=== PATIENT | female | born 1960 | race Caucasian/White ===

== ENCOUNTER → 2016-03-24 | Outpatient (CLI) | payer MEDICARE, BC ==
[~2016-03-24] MED LIST: CALCIUM200 MG PO; EPA FISH OIL1000 MG PO; HALCION 0.0.125 MG/T PO; LEVAQUIN 2250 MG/TAB PO; MULTIPLE VITAMI1 CAP PO; MVI; NAPROXEN 3375 MG/TAB PO; NEURONTIN300 MG/CAP PO; NO HOME MEDICATIONS; NORCO 325 MG-51 TAB PO; SINGULAIR 110 MG/TAB PO; ULTRAM 50MG TAB50 MG PO; VALIUM 2MG T2 MG/TAB PO; VITAMIN D 400400 IU PO
== END ==
LOC: MC.RAD 07:40
DX: Z12.31 Encounter for screening mammogram for malignant neoplasm of breast (principal)

== ENCOUNTER 2016-12-26 12:30 | Outpatient (RCR) | payer MEDICARE, BC | END 2017-01-30 12:21 | disposition home or self-care (01) | LOC: WSOT | DX: M19.041 Primary osteoarthritis, right hand (principal); Z87.820 Personal history of traumatic brain injury | CPT/HCPCS: G8987-GO; G8988-GO ==

== ENCOUNTER → 2017-03-06 | Outpatient (CLI) | payer MEDICARE, BC ==
[~2017-03-06] VITALS: Ht 162.6 cm; Wt 80.0 kg
[~2017-03-06] MED LIST changes: +FOSAMAX 70MG TA70 MG PO; +MAGNESIUM250 M1 PO; +NATURAL IRON65 MG PO; +VITAMIN B11000 MCG/M IM
[2017-03-06 13:14] VITALS: BP 152/82; PULSE 84
[2017-03-06 14:20] VITALS: BP 139/92; PULSE 72
== END ==
LOC: COL.RAD 13:00
DX: M50.323 Other cervical disc degeneration at C6-C7 level (principal)
CPT/HCPCS: J1100

== ENCOUNTER → 2017-08-04 | Outpatient (CLI) | payer MEDICARE, BC ==
[~2017-08-04] VITALS: Ht 162.6 cm; Wt 82.0 kg
[2017-08-04 14:34] VITALS: BP 124/62; PULSE 79; TEMP 98.2
== END ==
LOC: EUO 14:07
DX: M81.8 Other osteoporosis without current pathological fracture (principal)
CPT/HCPCS: J3489

== ENCOUNTER 2017-08-05 09:34 | Inpatient (IN) | payer MEDICARE, BC ==
[~2017-08-05] VITALS: Ht 162.6 cm; Wt 83.5 kg
[2017-09-01] VITALS (12 sets, daily range): BP systolic 89–119; BP diastolic 44–75; PULSE 79–101; TEMP 97.9–98.5
[2017-09-01] MEDS ORDERED: FOLIC ACID800 MCG PO (07:26)
[2017-09-01] MEDS ORDERED: VITAMIN C500 MG PO (07:27)
[2017-09-02] VITALS (7 sets, daily range): BP systolic 92–140; BP diastolic 51–59; PULSE 70–100; TEMP 98.1–99.5
[2017-09-02 06:33] LABS: HEMOGLOBIN 11.4 g/dl (12.5-16.0)
[2017-09-02 06:37] LABS: HEMATOCRIT 35.6 % (37.0-47.0)
[2017-09-03 04:34] VITALS: BP 133/64; PULSE 96; TEMP 98.4
[2017-09-03] MEDS ORDERED: NORCO 325 MG-7.1 TAB PO (06:41)
[2017-09-03] MEDS ORDERED: ASPI325T6 PO (06:41)
[2017-09-03] MEDS ORDERED: ROXICODONE 55 MG/TAB PO (06:42)
[2017-09-03 08:13] VITALS: BP 152/74; PULSE 86; TEMP 98.6
[2017-09-03 11:44] VITALS: BP 123/56; PULSE 81; TEMP 98.1
== END 2017-09-03 17:35 | disposition home or self-care (01) | DRG 470 ==
LOC: JCC 09-01 06:23
PROVIDERS: Orthopaedic Surgery
PROC: 0SRC0J9 Replacement of Right Knee Joint with Synthetic Substitute, Cemented, Open Approach (ICD-10-PCS; principal; 2017-09-01 09:30)
DX: M17.11 Unilateral primary osteoarthritis, right knee (principal); M79.7 Fibromyalgia; Z87.891 Personal history of nicotine dependence; Z98.84 Bariatric surgery status
CPT/HCPCS: A4314; A9284; C1713; C1776; J0690; J2250; J2405; J2704; J2765; J3010; J7120

== ENCOUNTER → 2017-08-26 | Outpatient (CLI) | payer MEDICARE, BC ==
[2017-08-26 15:26] LABS: HIV 1/2 Antibodies Non-Reactive; HIV-1p24 Antigen Non-Reactive
== END ==
LOC: COL.LAB 13:43
PROVIDERS: Orthopaedic Surgery
DX: Z01.812 Encounter for preprocedural laboratory examination (principal); M17.11 Unilateral primary osteoarthritis, right knee

== ENCOUNTER 2017-08-28 15:30 | Outpatient (RCR) | payer MEDICARE, BC ==
[2017-09-01] MEDS ORDERED: FOLIC ACID800 MCG PO (07:26)
[2017-09-01] MEDS ORDERED: VITAMIN C500 MG PO (07:27)
== END 2017-09-01 07:56 | disposition home or self-care (01) ==
LOC: WSPT 15:30
DX: Z01.818 Encounter for other preprocedural examination (principal); M17.11 Unilateral primary osteoarthritis, right knee
CPT/HCPCS: G8978-GP; G8979-GP; G8980-GP

== ENCOUNTER 2017-10-05 14:28 | Emergency (ER) | payer MEDICARE, BC ==
[~2017-10-05] VITALS: Ht 162.6 cm; Wt 79.5 kg
[~2017-10-05 14:28] MED LIST changes: +ASPI325T6 PO; +FOLIC ACID800 MCG PO; +NORCO 325 MG-7.1 TAB PO; +ROXICODONE 55 MG/TAB PO; +VITAMIN C500 MG PO
[2017-10-05 14:39] VITALS: TEMP 97.3
[2017-10-05 15:03] LABS: BASO # 0.1 (0.0-0.2); BASO % 0.9 % (0.0-2.0); EOS # 0.2 (0.0-0.7); GRAN # 4.6 (1.4-6.5); GRAN % 58.6 % (42.2-75.2); HEMATOCRIT 44.8 % (37.0-47.0); HEMOGLOBIN 14.3 g/dl (12.5-16.0); LYMPH # 2.4 (1.2-3.4); MEAN CELL VOLUME 93 fl (80.0-100.0); MEAN CORPUSCULAR HEMOGLOBIN 30 pg (27.0-31.0); MEAN CORPUSCULAR HGB CONC 32 g/dl (33.0-37.0); MEAN PLATELET VOLUME 10.5 fl (7.4-10.4); MONO # 0.6 (0.1-0.6); MONO % 7.2 % (1.7-9.3); PLATELET COUNT 299 K/mm3 (130-400); REDCELL DISTRIBUTION WIDTH-CV 13.1 % (11.5-14.5)
[2017-10-05] MEDS ORDERED: NEURONTIN300 MG/CAP PO (15:04)
[2017-10-05] MEDS ORDERED: ULTRAM 50MG TAB50 MG PO (15:04)
[2017-10-05] MEDS ORDERED: OYSTER SHELL C500 MG PO (15:05)
[2017-10-05] MEDS ORDERED: VITAMIN D3400 I1 PO (15:05)
[2017-10-05 15:13] LABS: ALANINE AMINOTRANSFERASE 31 U/L (9-52); ALBUMIN 4.5 gm/dL (3.5-5.0); ALKALINE PHOSPHATASE 86 U/L (50-136); ANION GAP 14 mmol/L (7-16); AST,SGOT 43 U/L (15-37); BILIRUBIN,TOTAL 0.4 mg/dL (0.0-1.0); BLOOD UREA NITROGEN 12 mg/dL (7-17); CALCIUM 9.8 mg/dL (8.4-10.2); CARBON DIOXIDE 25 mmol/L (22-30); CHLORIDE 103 mmol/L (98-107); CREATINE KINASE 43 U/L (30-135); CREATININE, serum 0.63 mg/dL (0.52-1.25); GLUCOSE 94 mg/dL (74-106); POTASSIUM 4.2 mmol/L (3.4-5.0); SODIUM 142 mmol/L (137-145); TOTAL PROTEIN 8.6 gm/dL (6.4-8.2)
[2017-10-05 15:17] LABS: PROTHROMBIN TIME 10.9 SECONDS (9.7-12.8)
[2017-10-05 15:27] LABS: TROPONIN-I < 0.012 ng/mL (0.000-0.034)
[2017-10-05 18:08] VITALS: BP 136/87; PULSE 96
== END 2017-10-05 18:08 | disposition home or self-care (01) ==
LOC: COL.ER 14:28
PROVIDERS: Emergency Medicine
DX: R07.9 Chest pain, unspecified (principal); E11.9 Type 2 diabetes mellitus without complications; Z98.890 Other specified postprocedural states; Z79.82 Long term (current) use of aspirin; Z79.891 Long term (current) use of opiate analgesic
CPT/HCPCS: J7030; Q9967

== ENCOUNTER 2017-12-03 15:00 | Outpatient (RCR) | payer MEDICARE, BC ==
[~2017-12-03 15:00] MED LIST changes: +OYSTER SHELL C500 MG PO; +VITAMIN D3400 I1 PO
== END 2017-12-07 | disposition home or self-care (01) ==
LOC: WSPT
DX: Z47.1 Aftercare following joint replacement surgery (principal); Z96.651 Presence of right artificial knee joint
CPT/HCPCS: G8978-GP; G8979-GP

== ENCOUNTER 2017-12-18 09:35 | Outpatient (RCR) | payer MEDICARE, BC ==
[2018-03-05] MEDS ORDERED: FOSAMAX 70MG TA70 MG PO (11:30)
[2018-03-05] MEDS ORDERED: CYANOCOBAL1000 MCG/M IM (11:31)
[2018-03-05] MEDS ORDERED: MAXALT10 MG PO (11:33)
[2018-03-08] MEDS ORDERED: HALCION 0.0.125 MG/T PO (07:32)
[2018-03-09] MEDS ORDERED: NORCO 325 MG-7.1 TAB PO (13:38)
[2018-03-09] MEDS ORDERED: ASPI325T6 PO (13:38)
[2018-03-09] MEDS ORDERED: ROXICODONE 55 MG/TAB PO (13:39)
[2018-03-09] MEDS ORDERED: TYLENOL 500MG500 MG PO (13:39)
[2018-03-09] MEDS ORDERED: ZANTAC 150MG T150 MG PO (13:40)
== END 2018-03-18 | disposition home or self-care (01) ==
LOC: WSPT
DX: Z47.89 Encounter for other orthopedic aftercare (principal); Z96.651 Presence of right artificial knee joint
CPT/HCPCS: G8979-GP; G8980-GP

== ENCOUNTER 2018-01-12 13:44 | Inpatient (IN) | payer MEDICARE, BC ==
[~2018-01-12] VITALS: Ht 162.6 cm; Wt 80.3 kg
[2018-03-05] MEDS ORDERED: FOSAMAX 70MG TA70 MG PO (11:30)
[2018-03-05] MEDS ORDERED: CYANOCOBAL1000 MCG/M IM (11:31)
[2018-03-05] MEDS ORDERED: MAXALT10 MG PO (11:33)
[2018-03-08] VITALS (11 sets, daily range): BP systolic 102–137; BP diastolic 51–78; PULSE 72–97; TEMP 97.1–98.3
[2018-03-08] MEDS ORDERED: HALCION 0.0.125 MG/T PO (07:32)
--- NOTE | 2018-03-08 11:00 | NUR ---
PATIENT IS BACK IN ROOM 332 POST OP LTK. A&O. VSS. DENIES PAIN. PATIENT IS ABLE TO MOVE BLE. LTK DRESSING IS CD&I WITH AQUACEL AND CRYOCUFF INPLACE. TEDS & SCD'S TO BLE. POSITIVE PEDAL PULSES TO BLE. [place] TO DEPENDENT DRAINAGE WITH SMALL AMOUNTS OF CLEAR YELLOW URINE NOTED. IV FLUIDS INFUSING VIA PUMP. NO C/O N/V. LIQUIDS AT BEDSIDE. HEAD TO TOE ASSESSMENT COMPLET. NO OTHER NEEDS. CALL LIGHT IN REACH.
--- NOTE | 2018-03-08 11:58 | NUR ---
First visit from the dual rate dealer. No needs right now.
--- NOTE | 2018-03-08 13:40 | NUR ---
AT CONTACT LENS LATHE OPERATOR AT BEDSIDE. PATIENT DOING WELL.
--- NOTE | 2018-03-08 19:48 | NUR ---
Assessment completed. Patient is A&O x 4. VSS, currently on 3 liters of supplemental O2 via nasal cannula. Aquacell dressing to left knee is CDI with cryocuff maintained. Pedal pulses intact. BLE osvaldo hose/scds on. Tolerating diet with no c/o nausea. Cruz catheter to DD with yellow clear urine draining. IVF infusing with intermittent antibiotic per orders. Denies any concerns or needs. Bed is in a low position with call light in reach.
--- NOTE | 2018-03-08 20:52 | NUR ---
Patient ambulated approximately 150 feet in the hallway with assist x 1 with walker and gait belt, gait steady.
[2018-03-09 04:11] VITALS: BP 106/53; PULSE 66; TEMP 98
--- NOTE | 2018-03-09 04:43 | NUR ---
Patient has rested intermittently through the night. Pain continues to be controlled with alternating [place]. Aquacell dressing to left knee remains CDI with cryocuff maintained to knee. Cruz catheter to DD with light yellow clear urine draining. IVF to INT after last dose of antibiotic this morning. Denies any concerns or needs at this time, call light within reach.
[2018-03-09 06:43] LABS: HEMOGLOBIN 11.1 g/dl (12.5-16.0)
[2018-03-09 08:12] VITALS: BP 114/51; PULSE 55; TEMP 98.6
--- NOTE | 2018-03-09 08:13 | NUR ---
PATIENT WALKING HALLS WITH MOTHER.
--- NOTE | 2018-03-09 10:43 | NUR ---
Initial visit; Patient thanked Financial Engineer for looking in on her and offering God's blessings though declined spiritual care.
[2018-03-09 12:19] VITALS: BP 126/56; PULSE 62; TEMP 98.1
[2018-03-09] MEDS ORDERED: ASPI325T6 PO (13:38)
[2018-03-09] MEDS ORDERED: NORCO 325 MG-7.1 TAB PO (13:38)
[2018-03-09] MEDS ORDERED: ROXICODONE 55 MG/TAB PO (13:39)
[2018-03-09] MEDS ORDERED: TYLENOL 500MG500 MG PO (13:39)
[2018-03-09] MEDS ORDERED: ZANTAC 150MG T150 MG PO (13:40)
--- NOTE | 2018-03-09 15:45 | NUR ---
SW and SW student met with patient to discuss discharge planning. Patient lives in [place] with her Boris but will be staying with her daughter in Law in [place] after discharge as she does not have any stairs to get into the home. Patient has a walker and will be doing her outpatient PT at [facility]. There are no anticipated discharge needs at this time.
[2018-03-09 16:22] VITALS: BP 117/54; PULSE 60; TEMP 97.5
--- NOTE | 2018-03-09 19:21 | NUR ---
Assessment completed. Patient is sitting up in the chair with BLE elevated on pillows. Aquacell dressing to left knee has a moderate amount of drainage noted. BLE osvaldo hose off at this time. Pedal pulses intact. Encouraged ankle pumps while sitting in the chair. Tolerating diet with no c/o nausea. Voiding with no difficulities. INT to left hand. Will ambulate in the hallway later this evening. Denies any concerns or needs at this time, call light within reach.
[2018-03-09 20:00] VITALS: BP 108/57; PULSE 65; TEMP 98.1
--- NOTE | 2018-03-09 21:30 | NUR ---
Patient ambulated 150 [address] in the hallway with walker and gait belt, gait steady. Assisted with repositioning LLE in bed and cryocuff applied. Denies any concerns or needs at this time, call light is within reach.
[2018-03-10 00:54] VITALS: BP 108/46; PULSE 65; TEMP 98.5
[2018-03-10 04:31] VITALS: BP 111/49; PULSE 82; TEMP 98
--- NOTE | 2018-03-10 05:16 | NUR ---
Patient has rested intermittently through the night. VSS, remains on room air. Pain controlled with alternating [place]. Aquacell dressing to left knee with moderate amount of drainage, no increase through the night. BLE osvaldo hose reapplied. Up with standby assist through the night to the bathroom with walker, gait is steady. Denies any concerns or needs at this time, call light within reach.
--- NOTE | 2018-03-10 06:40 | NUR ---
awake resting om bed, bedside shift report received from DOC Paz
--- NOTE | 2018-03-10 07:25 | NUR ---
sitting up in bed eating breakfast, medicated with hydrocodone 7.5mg 2 tabs for c/os discomfort and in anticipation of therapy
[2018-03-10 07:37] VITALS: BP 118/47; PULSE 74; TEMP 97.5
--- NOTE | 2018-03-10 07:57 | NUR ---
had breakfast and tolerated well, full assessment completed, see interventions for further info, states relief of pain after pain pills
--- NOTE | 2018-03-10 08:54 | NUR ---
occupational therapy in to work with patient and assist with taking a shower
--- NOTE | 2018-03-10 09:32 | NUR ---
ambulated out to al with physical therapy for group exercises
--- NOTE | 2018-03-10 11:40 | NUR ---
resting in chair, discharge instructions given to patient and her , verbalizes understanding
--- NOTE | 2018-03-10 11:50 | NUR ---
discharged per WC
== END 2018-03-10 11:50 | disposition home or self-care (01) | DRG 470 ==
LOC: JCC 03-08 06:24
PROVIDERS: ADMIT Orthopaedic Surgery
PROC: 0SRD0J9 Replacement of Left Knee Joint with Synthetic Substitute, Cemented, Open Approach (ICD-10-PCS; principal; 2018-03-08 10:45)
DX: M17.12 Unilateral primary osteoarthritis, left knee (principal); Z96.651 Presence of right artificial knee joint; Z87.891 Personal history of nicotine dependence; M81.0 Age-related osteoporosis without current pathological fracture; M79.7 Fibromyalgia
CPT/HCPCS: A4314; A9284; C1713; C1776; J0690; J1100; J1885; J2250; J2405; J2704; J3010; J7120

== ENCOUNTER 2018-02-23 15:40 | Outpatient (RCR) | payer MEDICARE, BC | END 2018-02-25 08:38 | disposition home or self-care (01) | LOC: WSPT 15:40 | DX: Z01.818 Encounter for other preprocedural examination (principal); M17.12 Unilateral primary osteoarthritis, left knee ==

== ENCOUNTER → 2018-03-02 | Outpatient (CLI) | payer MEDICARE, BC ==
[2018-03-02 10:16] LABS: HIV 1/2 Antibodies Non-Reactive; HIV-1p24 Antigen Non-Reactive
== END ==
LOC: COL.LAB 09:10
PROVIDERS: Orthopaedic Surgery
DX: Z01.812 Encounter for preprocedural laboratory examination (principal); M17.12 Unilateral primary osteoarthritis, left knee

== ENCOUNTER → 2018-04-26 | Outpatient (CLI) | payer MEDICARE, BC ==
[~2018-04-26] MED LIST changes: +CYANOCOBAL1000 MCG/M IM; +MAXALT10 MG PO; +TYLENOL 500MG500 MG PO; +ZANTAC 150MG T150 MG PO
[2018-04-26 16:08] LABS: HEMATOCRIT 45.4 % (37.0-47.0); HEMOGLOBIN 15.1 g/dl (12.5-16.0); MEAN CELL VOLUME 91 fl (80.0-100.0); MEAN CORPUSCULAR HEMOGLOBIN 30 pg (27.0-31.0); MEAN CORPUSCULAR HGB CONC 33 g/dl (33.0-37.0); MEAN PLATELET VOLUME 10.2 fl (7.4-10.4); PLATELET COUNT 317 K/mm3 (130-400); RED BLOOD COUNT 4.98 M/mm3 (4.10-5.30); REDCELL DISTRIBUTION WIDTH-CV 12.7 % (11.5-14.5)
[2018-04-26 16:32] LABS: ERYTHROCYTE SEDIMENTATION RATE 20 mm/hr (0-30)
== END ==
LOC: COL.LAB 15:46
PROVIDERS: Orthopaedic Surgery
DX: Z96.652 Presence of left artificial knee joint (principal)

== ENCOUNTER 2018-06-04 08:00 | Outpatient (RCR) | payer MEDICARE, BC | END 2018-06-13 | disposition home or self-care (01) | LOC: WSPT | DX: Z47.1 Aftercare following joint replacement surgery (principal); Z96.652 Presence of left artificial knee joint ==

== ENCOUNTER 2018-07-26 14:44 | Outpatient (CLI) | payer MEDICARE, BC ==
[~2018-07-26] VITALS: Ht 162.6 cm; Wt 82.0 kg
[~2018-07-26 14:44] MED LIST changes: +MULTI VITAMINS1 TAB PO; -MULTIPLE VITAMI1 CAP PO
[2018-07-26 15:02] VITALS: BP 114/57; PULSE 80; TEMP 98.3
[2018-07-26] MEDS ORDERED: CALCIUM 600MG+D1 TAB PO (15:28)
[2018-07-26] MEDS ORDERED: IRON TABLETS325 MG PO (15:29)
[2018-07-26] MEDS ORDERED: NEURONTIN300 MG/CAP PO (15:30)
[2018-07-26] MEDS ORDERED: VITAMINC500CH PO (15:33)
[2018-07-26] MEDS ORDERED: FOLIC ACID0.4 MG PO (15:33)
== END 2018-07-26 15:51 | disposition home or self-care (01) ==
LOC: EUO 14:44
DX: M81.8 Other osteoporosis without current pathological fracture (principal)
CPT/HCPCS: J3489

== ENCOUNTER → 2018-08-20 | Outpatient (CLI) | payer MEDICARE, BC ==
[~2018-08-20] MED LIST changes: +CALCIUM 600MG+D1 TAB PO; +FOLIC ACID0.4 MG PO; +IRON TABLETS325 MG PO; +VITAMINC500CH PO
== END ==
LOC: MC.RAD 07:06
DX: Z12.31 Encounter for screening mammogram for malignant neoplasm of breast (principal)

== ENCOUNTER → 2020-06-28 | Outpatient (CLI) | payer MEDICARE, BC | LOC: MC.RAD 09:42 | DX: Z12.31 Encounter for screening mammogram for malignant neoplasm of breast (principal) ==

== ENCOUNTER 2020-12-13 21:44 | Emergency (ER) | payer MEDICARE, BC ==
[~2020-12-13] VITALS: Ht 162.6 cm; Wt 77.3 kg
[2020-12-13 21:49] VITALS: TEMP 97.5
[2020-12-13 22:51] LABS: BASO # 0.1 K/mm3 (0.0-0.2); BASO % 0.7 % (0.0-2.0); EOS # 0.1 K/mm3 (0.0-0.7); EOS % 1.1 % (0-4.0); GRAN # 5.3 K/mm3 (1.4-6.5); GRAN % 60.3 % (42.2-75.2); HEMATOCRIT 44.6 % (37.0-47.0); HEMOGLOBIN 14.7 g/dl (12.5-16.0); LYMPH # 2.7 K/mm3 (1.2-3.4); LYMPH % 30.6 % (20.0-51.0); MEAN CELL VOLUME 93 fl (80.0-100.0); MEAN CORPUSCULAR HEMOGLOBIN 31 pg (27.0-31.0); MEAN CORPUSCULAR HGB CONC 33 g/dl (33.0-37.0); MONO # 0.6 K/mm3 (0.1-0.6); MONO % 7.1 % (1.7-9.3); PLATELET COUNT 283 K/mm3 (130-400); RED BLOOD COUNT 4.82 M/mm3 (4.10-5.30); REDCELL DISTRIBUTION WIDTH-CV 12.6 % (11.5-14.5)
[2020-12-13 23:03] LABS: ALANINE AMINOTRANSFERASE 24 U/L (0-55); ALBUMIN 4.2 gm/dL (3.5-5.0); ALKALINE PHOSPHATASE 76 U/L (40-150); ANION GAP 11 mmol/L (7-16); AST,SGOT 27 U/L (5-34); BILIRUBIN,TOTAL 0.3 mg/dL (0.2-1.2); BLOOD UREA NITROGEN 14 mg/dL (10-20); CARBON DIOXIDE 23 mmol/L (22-29); CHLORIDE 107 mmol/L (98-107); CREATININE, serum 0.73 mg/dL (0.57-1.11); GLUCOSE 113 mg/dL (70-99); POTASSIUM 4.3 mmol/L (3.5-4.5); SODIUM 141 mmol/L (136-145); TOTAL PROTEIN 8.1 gm/dL (6.2-8.1)
[2020-12-13 23:16] LABS: TROPONIN-I < 0.010 ng/mL (0.00-0.033)
[2020-12-13 23:38] VITALS: BP 130/90; PULSE 83
== END 2020-12-13 23:38 | disposition home or self-care (01) ==
LOC: COL.ER 21:44
PROVIDERS: Student in an Organized Health Care Education/Training Program
DX: R07.89 Other chest pain (principal); Z98.84 Bariatric surgery status

== ENCOUNTER → 2021-02-21 | Outpatient (CLI) | payer MEDICARE, BC | LOC: COL.RAD 08:33 | DX: M25.552 Pain in left hip (principal) | CPT/HCPCS: J3301; Q9967 ==

== ENCOUNTER → 2021-04-08 | Outpatient (RCR) | payer MEDICARE, BC | END | disposition still patient (30) | LOC: WSPT | DX: M25.552 Pain in left hip (principal) ==

== ENCOUNTER 2021-04-30 09:45 | Outpatient (RCR) | payer MEDICARE, BC | END 2021-05-09 | disposition still patient (30) | LOC: WSPT | DX: M25.552 Pain in left hip (principal) ==

== ENCOUNTER → 2021-07-03 | Outpatient (CLI) | payer MEDICARE, BC | LOC: COL.RAD 08:33 | DX: M16.12 Unilateral primary osteoarthritis, left hip (principal) | CPT/HCPCS: J3301; Q9967 ==

== ENCOUNTER → 2021-09-11 | Outpatient (CLI) | payer MEDICARE, BC | LOC: MC.RAD 08:05 | DX: Z12.31 Encounter for screening mammogram for malignant neoplasm of breast (principal) ==

== ENCOUNTER 2021-10-01 13:59 | Outpatient (RCR) | payer MEDICARE, BC | END 2021-10-01 15:00 | disposition home or self-care (01) | LOC: WSPT 13:59 | DX: M25.552 Pain in left hip (principal) ==

== ENCOUNTER → 2023-10-07 | Outpatient (CLI) | payer MEDICARE, BC ==
[~2023-10-07] MED LIST changes: +VOLTAREN 75 DR75 MG PO
== END ==
LOC: MC.RAD 14:16
DX: Z12.31 Encounter for screening mammogram for malignant neoplasm of breast (principal)